=== PATIENT | male | born 1960 | race Caucasian/White ===

== ENCOUNTER 2016-06-04 21:22 | Emergency (ER) | payer OTHER ==
[~2016-06-04 21:22] MED LIST: ADULT ASPIRIN81 MG PO; ADVAIR 2501 DISK W/D IH; ADVIL200 M1 PO; AVELOX400 MG PO; BEE WITH C1 CAP PO; BENICAR20 MG PO; CHOLESTEROL MED; COZAAR100 MG PO; CRESTOR10 MG PO; DEPAKENE250 MG PO; E-400400 UNIT PO; HYDROCODONE/APA1 CAP PO; IMITREX50 MG PO; LORTAB 5/5001 EA PO; MOTRIN400 MG PO; MUCINEX600 MG PO; MULTIVITAMIN; MULTIVITAMIN1 TAB PO; OMEGA 31 CAP PO; PERCOCET 5/3251 TAB PO; PERCOCET 5MG/AP1 TAB PO; PHENERGAN; PROTONIX20 MG PO; PROTONIX40 MG PO; STRESS FORMULA1 TAB PO; TRAMADOL HCL50 MG PO; VITAMIN A; VITAMIN A8000 UNIT PO; VITAMIN E1000 UNI1 PO; VITAMIN E1000 UNIT PO
== END 2016-06-04 23:34 ==
LOC: EDMED 21:22
PROC: 0HQGXZZ Repair Left Hand Skin, External Approach (ICD-10-PCS; principal; 2016-06-04)
DX: S61.213A Laceration without foreign body of left middle finger without damage to nail, initial encounter (principal); W22.8XXA Striking against or struck by other objects, initial encounter; Y93.9 Activity, unspecified; I25.10 Atherosclerotic heart disease of native coronary artery without angina pectoris; I10 Essential (primary) hypertension; E11.9 Type 2 diabetes mellitus without complications; Z79.84 Long term (current) use of oral hypoglycemic drugs; K21.9 Gastro-esophageal reflux disease without esophagitis; J44.9 Chronic obstructive pulmonary disease, unspecified; Z23 Encounter for immunization